=== PATIENT | female | born 2000 | race Caucasian/White ===

== ENCOUNTER 2025-04-25 14:51 | Outpatient (CLI) | payer BC, SELFPAY | END 2025-04-25 14:52 | disposition home or self-care (01) | LOC: NFLDREF 14:53 | PROVIDERS: PCP Pediatrics; Visit Provider Physician Assistant Surgical | DX: Z11.3 Encounter for screening for infections with a predominantly sexual mode of transmission (principal) | CPT/HCPCS: 86703; 86780 ==